=== PATIENT | male | born 1950 | race African-American/Black ===

== ENCOUNTER 2017-03-12 11:51 | Emergency (ER) | payer OTHER ==
[~2017-03-12] VITALS: Ht 172.7 cm; Wt 102.0 kg
[~2017-03-12 11:51] MED LIST: ALBU8I INH; CYCL-36 PO; DOCU1CAP39 PO; MULT-65 PO; PANT20 PO; PROT40TA PO; SERT25TA83 PO; SILD20TA PO; SYMB80AE INH; TERA10CA3 PO; ZOFR4TAB3 SL
[2017-03-12 12:00] VITALS: BP 176/81; PULSE 71; RESP 16; TEMP 98.4; O2SAT 100
[2017-03-12] MEDS ORDERED: SODIUM CHLOR 0.9% 1000 ML INJ 1,000 ML IV ONE (12:05)
[2017-03-12 12:10] VITALS: O2SAT 98
--- NOTE | 2017-03-12 12:22 | PD ---
HPI Chief Complaint: Neuro Symptoms/ Deficits Time Seen by Provider: 12:00 Travel History International Travel<30 days: No Contact w/Intl Traveler<30days: No Traveled to known affect area: No History of Present Illness HPI 66-year-old Afro-[place] male with history of prostate cancer status post radiation treatment presents the emergency department via EMS with 3 day history of acute facial numbness and weakness. Patient has had some decreased hearing and dizziness as well. The patient reports a mild fever and chills over this past weekend as well. This seems to have improved but he continues to have worsening facial droop on the right. Patient states no obvious weakness or numbness in the right arm or right leg. Patient was blaming his symptoms on recent change in his prostate medication medicine. He states a mild headache 1-5 out of 10 over the past 3 days. This is not worsening. Patient has had difficulty drinking due to the right side mouth weakness. He denies difficulty swallowing in the throat, or tongue. Speech is normal. Patient is having difficulty keeping his right eye closed. He has no eye pain. Patient called EMS as his symptoms seem to be worsening today compared to the last 2 days. He has no known drug allergies. PFSH Past Medical History Anemia: Yes Arthritis: Yes Asthma: Yes Anxiety: Yes Depression: Yes Cancer: Yes (PROSTATE CA ) Cardiac Catheterization: Yes Cardiovascular Problems: Yes Chest Pain: Yes Congestive Heart Failure: Yes COPD: Yes Diminished Hearing: No Endocrine: No Genitourinary: No Hepatitis: Yes (HEP C) Hiatal Hernia: Yes Hypertension: Yes Immune Disorder: No Musculoskeletal: Yes Neurologic: No Psychiatric: Yes Reproductive: No Respiratory: Yes Myocardial Infarction: Yes (2012) Social History Alcohol Use: No Tobacco Use: No Substance Use: No Allergies-Medications (Allergen,Severity, Reaction): Coded Allergies: No Known Allergies (Unverified Adverse Reaction, Unknown, 03/12/17) Reported Meds & Prescriptions Reported Meds & Active Scripts Active Valtrex (Valacyclovir HCl) 1,000 Mg Tab 1,000 Mg PO BID 5 Days Prednisone 20 Mg Tab 20 Mg PO BID 5 Days Protonix (Pantoprazole Sodium) 40 Mg Tab 40 Mg PO DAILY 30 Days Zofran ODT (Ondansetron HCl) 4 Mg Tab 4 Mg SL Q6H PRN FOR NAUSEA/VOMITING Reported Multi-Vitamin Daily (Multivitamins) Daily Tab 1 Tab PO DAILY Colace 100 Mg Cap (Docusate Sodium) 100 Mg Cap 100 Mg PO BID Sildenafil Citrate 20 Mg Tab 100 Mg PO WEEKLY Sertraline 25 mg (Sertraline HCl) 25 Mg Tab 25 Mg PO HSPRN Protonix (Pantoprazole Sodium) 20 Mg Tab 20 Mg PO DAILY Symbicort (Budesonide/Formoterol Fumarate) 80 Mcg/4.5 Mcg Aer 2 Puff INH BID * SHAKE WELL BEFORE USE * Terazosin Hcl (Terazosin HCl) 10 Mg Cap 10 Mg PO HS Flexeril (Cyclobenzaprine HCl) 10 Mg Tab 10 Mg PO DAILY PRN Ventolin Hfa (Albuterol Sulfate) 8 Gm Aero 2 Puff INH PRN * SHAKE WELL BEFORE USE * Review of Systems Except as stated in HPI: all other systems reviewed are Neg General / Constitutional: Positive: Fever (recent mild now improved.), Chills ( recent mild but now improved.) Eyes: Positive: Tearing (right eye), No: Diploplia, Blurred Vision, Photophobia , Drainage, Redness, Foreign Body Sensation, Pain, Blind Spots, Visual changes, Blindness HENT: Positive: Headaches (mild right-sided headache), Vertigo (mild occasional ), Other (intermittent decreased hearing in the right ear.), No: Lightheadedness , Sore Throat, Rhinitis, Rhinorrhea, Congestion, Nosebleed, Neck Stiffness, Neck Pain, Masses, Gingival Bleeding, Dental Difficulties, Ear Discharge, Earache Cardiovascular: No: Chest Pain or Discomfort, Palpitations, Irregular Rhythm, Tachycardia Respiratory: No: Cough, Shortness of Breath, Wheezing Gastrointestinal: No: Nausea, Vomiting, Diarrhea, Abdominal Pain Genitourinary: No: Dysuria Musculoskeletal: No: Myalgias, Arthralgias, Limited ROM, Weakness, Cramping, Edema, Pain Skin: No Rash Neurologic: Positive: Weakness (right facial droop), Dizziness (mild), Focal Abnormalities (numbness in the trigeminal nerve distribution.), Headache (mild headache on the right.), Paresthesia (only of the right face), No: Syncope, Coordination Problem, Tremor, Ataxia, Change in Mentation, Slurred Speech, Incontinence, Seizures, Sensory Disturbance Psychiatric: No: Depression Endocrine: No: Polydipsia Hematologic/Lymphatic: No: Easy Bruising Physical Exam Narrative GENERAL: Patient appears cheerful and alert and oriented 3. SKIN: Warm and dry. Color. Normal turgor. No rash. HEAD: Atraumatic. Normocephalic. EYES: Pupils equal and round. No scleral icterus. No injection or drainage. Ocular motions are full and equal bilaterally. There is no nystagmus. ENT: No nasal bleeding or discharge. Mucous membranes pink and moist. Pharynx is normal. Uvula is midline. Tongue is normal. TMs are clear bilaterally. NECK: Trachea midline. Supple and nontender. No bruits appreciated.. CARDIOVASCULAR: Regular rate and rhythm. No murmurs gallops or rubs. RESPIRATORY: No accessory muscle use. Clear to auscultation. Breath sounds equal bilaterally. GASTROINTESTINAL: Abdomen soft, non-tender, nondistended. Hepatic and splenic margins not palpable. MUSCULOSKELETAL: Extremities without clubbing, cyanosis, or edema. No obvious deformities. NEUROLOGICAL: Awake and alert. Patient has obvious right-sided facial bruit including the eyelid, and right cheek. Patient states decreased sensation in the right trigeminal nerve distribution. Motor grossly within normal limits. 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 Normal Five out of 5 muscle strength in the arms and legs. Normal speech. No slurred speech noted. Psych: Within normal limits. Data Data Last Documented VS Vital Signs Date Time Temp Pulse Resp B/P (MAP) Pulse Ox O2 Delivery O2 Flow Rate FiO2 03/12/17 12:10 98 Room Air 03/12/17 12:05 65 16 03/12/17 12:00 98.4 176/81 (112) Orders Orders Activity Bed Rest (03/12/17 ) Electrocardiogram (03/12/17 ) Prothrombin Time / Inr (Pt) (03/12/17 12:05) Act Partial Throm Time (Ptt) (03/12/17 12:05) Complete Blood Count With Diff (03/12/17 12:05) Fibrinogen (03/12/17 12:05) Creatine Kinase (Cpk) (03/12/17 12:05) Ua Includes Microscopic (03/12/17 12:05) Type And Screen (03/12/17 12:05) Ct Brain W/O Iv Contrast(Rout) (03/12/17 ) Chest, Single Ap (03/12/17 ) Ecg Monitoring (03/12/17 12:05) Iv Access Insert/Monitor (03/12/17 12:05) Oximetry (03/12/17 12:05) Oxygen Administration (03/12/17 12:05) Sodium Chlor 0.9% 1000 Ml Inj (Ns 1000 M (03/12/17 12:05) Westergren Sedimentation Rate (03/12/17 12:05) C-Reactive Protein (Crp) (03/12/17 12:05) Basic Metabolic Panel (Bmp) (03/12/17 13:33) Labs Laboratory Tests Test 03/12/17 12:22 03/12/17 12:53 White Blood Count 6.7 TH/MM3 Red Blood Count 3.49 MIL/MM3 Hemoglobin 11.7 GM/DL Hematocrit 34.6 % Mean Corpuscular Volume 99.4 FL Mean Corpuscular Hemoglobin 33.6 PG Mean Corpuscular Hemoglobin Concent 33.8 % Red Cell Distribution Width 15.7 % Platelet Count 348 TH/MM3 Mean Platelet Volume 7.3 FL Neutrophils (%) (Auto) 64.3 % Lymphocytes (%) (Auto) 25.0 % Monocytes (%) (Auto) 7.1 % Eosinophils (%) (Auto) 2.5 % Basophils (%) (Auto) 1.1 % Neutrophils # (Auto) 4.3 TH/MM3 Lymphocytes # (Auto) 1.7 TH/MM3 Monocytes # (Auto) 0.5 TH/MM3 Eosinophils # (Auto) 0.2 TH/MM3 Basophils # (Auto) 0.1 TH/MM3 CBC Comment DIFF FINAL Differential Comment Erythrocyte Sedimentation Rate 60 mm/hr Prothrombin Time 10.2 SEC Prothromb Time International Ratio 1.0 RATIO Activated Partial Thromboplast Time 25.4 SEC Fibrinogen 431 mg/dL Blood Urea Nitrogen 13 MG/DL Creatinine 1.25 MG/DL Random Glucose 134 MG/DL Calcium Level 9.5 MG/DL Sodium Level 140 MEQ/L Potassium Level 4.3 MEQ/L Chloride Level 106 MEQ/L Carbon Dioxide Level 27.0 MEQ/L Anion Gap 7 MEQ/L Estimat Glomerular Filtration Rate 70 ML/MIN Total Creatine Kinase 263 U/L C-Reactive Protein 0.96 MG/DL Urine Color YELLOW Urine Turbidity CLEAR Urine pH 5.5 Urine Specific [place] 1.022 Urine Protein NEG mg/dL Urine Glucose (UA) TRACE mg/dL Urine Ketones NEG mg/dL Urine Occult Blood NEG Urine Nitrite NEG Urine Bilirubin NEG Urine Urobilinogen LESS THAN 2.0 MG/DL Urine Leukocyte Esterase NEG Urine RBC 2 /hpf Urine WBC 1 /hpf Urine Squamous Epithelial Cells <1 /hpf Urine Hyaline Casts 1 /lpf Urine Mucus FEW /lpf MDM Medical Decision Making Medical Screen Exam Complete: Yes Emergency Medical Condition: Yes Medical Record Reviewed: Yes Differential Diagnosis Facial droop. Possible Mnire's disease. Possible Soto's palsy. Tumor. Possible stroke. Narrative Course Patient appears medically stable at time of exam. Labs ordered including CBC, CMP, ESR, CRP, fibrinogen, coagulation studies, urinalysis. Chest x-ray and CT of the brain without IV contrast is ordered. Chest x-ray is negative for acute process. CBC shows mild anemia with hemoglobin of 11.7. ESR is elevated at 60. Coagulation studies are normal with a fibrinogen of 431. Chemistries showed total creatinine kinase of 263. CRP is elevated at 0.96. Urinalysis is unremarkable. Head CT showed no acute findings. 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 Patient is discussed with Dr. Staples. Patient will be treated with prednisone 20 mg twice a day 5 days. Patient also given Valtrex 1000 mg twice a day 5 days. Patient is to use Lacri-Lube to the right eye at night, which should also be tape shut as well. Patient to follow up with milk driver in the next week as discussed. Patient can return to emergency Department with any worsening symptoms as needed. 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 Patient is discussed with Dr. Staples. Patient will be treated with prednisone 20 mg twice a day 5 days. Patient also given Valtrex 1000 mg twice a day 5 days. Patient is to use Lacri-Lube to the right eye at night, which should also be tape shut as well. Patient to follow up with milk driver in the next week as discussed. Patient can return to emergency Department with any worsening symptoms as needed. Med/Other Pt SpecificInfo: Prescription(s) given Scripts Valacyclovir (Valtrex) 1,000 Mg Tab 1000 MG PO BID for Mgmt Viral Infection for 5 Days, #1 TAB 0 Refills Prov: Leslie Staples MD 03/12/17 Prednisone (Prednisone) 20 Mg Tab 20 MG PO BID for 5 Days, #10 TAB 0 Refills Prov: Leslie Staples MD 03/12/17 Disposition: 01 DISCHARGE HOME Condition: Stable Afshin Aponte Mar 12, 2017 12:22
[2017-03-12 12:37] LABS: AUTOMATED NEUTROPHIL # 4.3 TH/MM3 (1.8-7.7); BASOPHIL # 0.1 TH/MM3 (0-0.2); BASOPHIL % 1.1 % (0.0-2.0); EOSINOPHIL # 0.2 TH/MM3 (0-0.4); EOSINOPHIL % 2.5 % (0.0-4.0); HEMATOCRIT 34.6 % (39.0-51.0); HEMO FLAGS DIFF FINAL; LYMPHOCYTE # 1.7 TH/MM3 (1.0-4.8); MEAN CELL VOLUME 99.4 FL (80.0-100.0); MEAN CORPUSCULAR HEMOGLOBIN 33.6 PG (27.0-34.0); MEAN CORPUSCULAR HGB CONC 33.8 % (32.0-36.0); MONO % 7.1 % (0.0-8.0); NEUT % 64.3 % (16.0-70.0); PLATELET COUNT 348 TH/MM3 (150-450); RED BLOOD COUNT 3.49 MIL/MM3 (4.50-5.90); RED CELL DISTRIBUTION WIDTH 15.7 % (11.6-17.2); WHITE BLOOD COUNT 6.7 TH/MM3 (4.0-11.0)
[2017-03-12 12:51] LABS: APTT (PATIENT) 25.4 SEC (24.3-30.1); PROTHROMBIN TIME - PATIENT 10.2 SEC (9.8-11.6)
--- NOTE | 2017-03-12 12:55 | RADRPT ---
EXAM DATE/TIME: 03/12/2017 12:28 [facility] COMPARISON: No previous studies available for comparison. INDICATIONS : Cough. MEDICAL HISTORY : Carcinoma, prostatic. SURGICAL HISTORY : None. ENCOUNTER: Initial ACUITY: 1 day PAIN SCORE: 0/10 LOCATION: Bilateral chest FINDINGS: A single view of the chest demonstrates the lungs to be symmetrically aerated without evidence of mas s, infiltrate or effusion. The cardiomediastinal contours are unremarkable. Osseous structures are intact. CONCLUSION: No acute disease. Mandeep Olivera MD on March 12, 2017 at 12:53 Board Certified Radiologist. This report was verified electronically.
[2017-03-12 13:15] LABS: BLOOD, URINE NEG (NEG); GLUCOSE,URINE TRACE mg/dL (NEG); HYALINE CAST, URINE 1 /lpf (RARE); KETONE, URINE NEG (NEG); MUCUS URINE FEW /lpf (OCC); NITRITE,URINE NEG (NEG); PH, URINE 5.5 (5.0-8.5); SQUAMOUS EPITHELIAL CELL URINE <1 /hpf (0-5); URINE COLOR YELLOW (YELLW/STRAW)
[2017-03-12 14:33] LABS: POTASSIUM 4.3 MEQ/L (3.5-5.1)
--- NOTE | 2017-03-12 15:36 | RADRPT ---
EXAM DATE/TIME: 03/12/2017 13:55 [facility] COMPARISON: No previous studies available for comparison. INDICATIONS : Right sided facial numbness droop. RADIATION DOSE: 56.35 CTDIvol (mGy) MEDICAL HISTORY : Cardiovascular disease. Chronic obstructive pulmonary disease. Hepatitis C. SURGICAL HISTORY : None. ENCOUNTER: Initial ACUITY: 1 day PAIN SCALE: 5/10 LOCATION: cranial TECHNIQUE: Multiple contiguous axial images were obtained of the head. Using automated exposure control and adj ustment of the mA and/or kV according to patient size, radiation dose was kept as low as reasonably a chievable to obtain optimal diagnostic quality images. DICOM format image data is available electro nically for review and comparison. FINDINGS: CEREBRUM: The ventricles are normal for age. No evidence of midline shift, mass lesion, hemorrhage or acute in farction. No extra-axial fluid collections are seen. POSTERIOR FOSSA: The cerebellum and brainstem are intact. The 4th ventricle is midline. The cerebellopontine angle i s unremarkable. EXTRACRANIAL: The visualized portion of the orbits is intact. SKULL: The calvaria is intact. No evidence of skull fracture. CONCLUSION: 1. No acute intracranial abnormality. Pnafilo Lynch MD on March 12, 2017 at 15:26 Board Certified Radiologist. This report was verified electronically.
[2017-03-12] MEDS ORDERED: PRED20 PO (16:10)
[2017-03-12] MEDS ORDERED: VALT1TAB PO (16:10)
--- NOTE | 2017-03-13 15:59 | EKG ---
Date Performed: 03/12/2017 Time Performed: 13:10:32 PTAGE: 66 years EKG: Sinus rhythm LEFT ANTERIOR FASCICULAR BLOCK NONSPECIFIC T-WAVE ABNORMALITY ABNORMAL ECG PREVIOUS TRACING : 12/13/2013 10.58 DOCTOR: Emmett Monson Interpretating Date/Time 03/13/2017 15:57:31
== END 2017-03-12 16:40 | disposition home or self-care (01) ==
LOC: NEPC 11:51
DX: G51.0 Bell's palsy (principal); R94.31 Abnormal electrocardiogram [ECG] [EKG]; R42 Dizziness and giddiness; R53.1 Weakness; D64.9 Anemia, unspecified; J44.9 Chronic obstructive pulmonary disease, unspecified; I11.0 Hypertensive heart disease with heart failure; B19.20 Unspecified viral hepatitis C without hepatic coma
CPT/HCPCS: 70450; 71010; 80048; 81001; 82550; 85025; 85384; 85610; 85652; 85730; 86140; 86850; 86900; 86901; 93005; 99285; J7030

== ENCOUNTER 2017-03-29 12:24 | Emergency (ER) | payer OTHER ==
[~2017-03-29] VITALS: Ht 172.7 cm; Wt 113.5 kg
[~2017-03-29 12:24] MED LIST changes: +PRED20 PO; +VALT1TAB PO
[2017-03-29 12:44] VITALS: BP 155/83; PULSE 73; RESP 16; TEMP 98.6; O2SAT 98
--- NOTE | 2017-03-29 13:24 | PD ---
HPI Chief Complaint: GI Complaint Time Seen by Provider: 13:11 Travel History International Travel<30 days: No Contact w/Intl Traveler<30days: No Traveled to known affect area: No History of Present Illness HPI The patient is a 66-year-old male who presents to the emergency department from the [facility] for bright rectal blood per rectum. The patient states he had a painful bowel movement 2 days ago, had a small amount of blood on the tissue paper and on the stool. He then had a normal bowel movement the next day, however, had another bowel movement today with a small metal blood on the tissue paper and in the toilet covering the stool. He denies any known history of anal fissures , hemorrhoids, or diverticulosis. The patient was seen at the [facility] earlier today who referred the patient to the emergency department. He denies any chest pain, shortness of breath with exertion, lightheadedness, or orthostatic changes. The patient does have a history of coronary artery disease and takes aspirin on a daily basis, but denies taking any other anticoagulants. He denies any acute abdominal pain, however, occasionally has mild left lower quadrant tenderness. Symptoms are mild without any alleviating or exacerbating factors. PFSH Past Medical History Anemia: Yes Arthritis: Yes Asthma: Yes Anxiety: Yes Depression: Yes Cancer: Yes (PROSTATE CA ) Cardiac Catheterization: Yes Cardiovascular Problems: Yes Chest Pain: Yes Congestive Heart Failure: Yes COPD: Yes Diminished Hearing: No Endocrine: No Genitourinary: No Hepatitis: Yes (HEP C) Hiatal Hernia: Yes Hypertension: Yes Immune Disorder: No Musculoskeletal: Yes Neurologic: No Psychiatric: Yes Reproductive: No Respiratory: Yes Myocardial Infarction: Yes (2012) Social History Alcohol Use: No Tobacco Use: No Substance Use: No Allergies-Medications (Allergen,Severity, Reaction): Coded Allergies: No Known Allergies (Unverified Adverse Reaction, Unknown, 03/12/17) Reported Meds & Prescriptions Reported Meds & Active Scripts Active Reported Effexor (Venlafaxine HCl) 100 Mg Tab 150 Mg PO Q12H Valacyclovir (Valacyclovir HCl) 1,000 Mg Tab 1,000 Mg PO DAILY Tamsulosin (Tamsulosin HCl) 0.4 Mg Cap 0.4 Mg PO HS Sildenafil 20 Mg Tab 20 Mg PO TID Prednisone 20 Mg Tab 20 Mg PO DAILY Pravastatin 40 Mg Tab 40 Mg PO DAILY Metoprolol Tartrate 25 Mg Tab 25 Mg PO BID Magnesium Oxide 400 Mg Tab 400 Mg PO DAILY Refresh Plus Unit-Dose 0.5% Opth (Carboxymethylcellulose Sodium 0.5% Opth) 0.5% Drops 1 Drop EACH EYE QID Aspirin 81 Mg Chew 81 Mg CHEW DAILY Review of Systems Except as stated in HPI: all other systems reviewed are Neg General / Constitutional: No: Fever HENT: No: Lightheadedness Cardiovascular: No: Chest Pain or Discomfort, Dyspnea on exertion Respiratory: No: Shortness of Breath Gastrointestinal: Positive: Abdominal Pain (intermittent left lower quadrant abdominal pain), Hematochezia, No: Nausea, Vomiting Genitourinary: Positive: Other (history of prostate cancer with radiation and chemotherapy), No: Hematuria Musculoskeletal: No: Weakness Neurologic: No: Dizziness Physical Exam Narrative GENERAL: Awake, alert, pleasant 66-year-old male who appears his stated age and is in no acute respiratory distress. SKIN: Focused skin assessment warm/dry. HEAD: Atraumatic. Normocephalic. EYES: Pupils equal and round. No scleral icterus. No injection or drainage. ENT: No nasal bleeding or discharge. Mucous membranes pink and moist. NECK: Trachea midline. No JVD. CARDIOVASCULAR: Regular rate and rhythm. No murmur appreciated. Heart rate in the 70s. RESPIRATORY: No accessory muscle use. Clear to auscultation. Breath sounds equal bilaterally. GASTROINTESTINAL: Abdomen soft, minimal left lower quadrant tenderness. No guarding or rigidity. Rectal: No obvious anal fissure or external hemorrhoids. No gross blood. Guaiac negative. MUSCULOSKELETAL: No obvious deformities. No clubbing. No cyanosis. No edema. NEUROLOGICAL: Awake and alert. No obvious cranial nerve deficits. Motor grossly within normal limits. Normal speech. PSYCHIATRIC: Appropriate mood and affect; insight and judgment normal. Data Data Last Documented VS Vital Signs Date Time Temp Pulse Resp B/P (MAP) Pulse Ox O2 Delivery O2 Flow Rate FiO2 03/29/17 13:37 77 113/58 (76) 79 112/60 (77) 87 111/71 (84) 03/29/17 12:44 98.6 16 98 Room Air Orders Orders Complete Blood Count With Diff (03/29/17 12:49) Comprehensive Metabolic Panel (03/29/17 12:49) Lipase (03/29/17 12:49) Prothrombin Time / Inr (Pt) (03/29/17 12:49) Act Partial Throm Time (Ptt) (03/29/17 12:49) Labs Laboratory Tests Test 03/29/17 13:30 White Blood Count 5.8 TH/MM3 Red Blood Count 3.73 MIL/MM3 Hemoglobin 13.2 GM/DL Hematocrit 37.0 % Mean Corpuscular Volume 99.1 FL Mean Corpuscular Hemoglobin 35.3 PG Mean Corpuscular Hemoglobin Concent 35.7 % Red Cell Distribution Width 15.8 % Platelet Count 269 TH/MM3 Mean Platelet Volume 8.0 FL Neutrophils (%) (Auto) 60.0 % Lymphocytes (%) (Auto) 30.0 % Monocytes (%) (Auto) 7.5 % Eosinophils (%) (Auto) 1.5 % Basophils (%) (Auto) 1.0 % Neutrophils # (Auto) 3.5 TH/MM3 Lymphocytes # (Auto) 1.8 TH/MM3 Monocytes # (Auto) 0.4 TH/MM3 Eosinophils # (Auto) 0.1 TH/MM3 Basophils # (Auto) 0.1 TH/MM3 CBC Comment DIFF FINAL Differential Comment Prothrombin Time 9.8 SEC Prothromb Time International Ratio 1.0 RATIO Activated Partial Thromboplast Time 22.6 SEC Blood Urea Nitrogen 20 MG/DL Creatinine 1.61 MG/DL Random Glucose 141 MG/DL Total Protein 8.5 GM/DL Albumin 4.1 GM/DL Calcium Level 9.8 MG/DL Alkaline Phosphatase 99 U/L Aspartate Amino Transf (AST/SGOT) 27 U/L Alanine Aminotransferase (ALT/SGPT) 39 U/L Total Bilirubin 0.7 MG/DL Sodium Level 136 MEQ/L Potassium Level 4.3 MEQ/L Chloride Level 102 MEQ/L Carbon Dioxide Level 26.6 MEQ/L Anion Gap 7 MEQ/L Estimat Glomerular Filtration Rate 53 ML/MIN Lipase 145 U/L MDM Medical Decision Making Medical Screen Exam Complete: Yes Emergency Medical Condition: Yes Medical Record Reviewed: Yes Interpretation(s) Laboratory Tests Test 03/29/17 13:30 White Blood Count 5.8 TH/MM3 Red Blood Count 3.73 MIL/MM3 Hemoglobin 13.2 GM/DL Hematocrit 37.0 % Mean Corpuscular Volume 99.1 FL Mean Corpuscular Hemoglobin 35.3 PG Mean Corpuscular Hemoglobin Concent 35.7 % Red Cell Distribution Width 15.8 % Platelet Count 269 TH/MM3 Mean Platelet Volume 8.0 FL Neutrophils (%) (Auto) 60.0 % Lymphocytes (%) (Auto) 30.0 % Monocytes (%) (Auto) 7.5 % Eosinophils (%) (Auto) 1.5 % Basophils (%) (Auto) 1.0 % Neutrophils # (Auto) 3.5 TH/MM3 Lymphocytes # (Auto) 1.8 TH/MM3 Monocytes # (Auto) 0.4 TH/MM3 Eosinophils # (Auto) 0.1 TH/MM3 Basophils # (Auto) 0.1 TH/MM3 CBC Comment DIFF FINAL Differential Comment Prothrombin Time 9.8 SEC Prothromb Time International Ratio 1.0 RATIO Activated Partial Thromboplast Time 22.6 SEC Blood Urea Nitrogen 20 MG/DL Creatinine 1.61 MG/DL Random Glucose 141 MG/DL Total Protein 8.5 GM/DL Albumin 4.1 GM/DL Calcium Level 9.8 MG/DL Alkaline Phosphatase 99 U/L Aspartate Amino Transf (AST/SGOT) 27 U/L Alanine Aminotransferase (ALT/SGPT) 39 U/L Total Bilirubin 0.7 MG/DL Sodium Level 136 MEQ/L Potassium Level 4.3 MEQ/L Chloride Level 102 MEQ/L Carbon Dioxide Level 26.6 MEQ/L Anion Gap 7 MEQ/L Estimat Glomerular Filtration Rate 53 ML/MIN Lipase 145 U/L Differential Diagnosis Differential diagnosis includes anal fissure, internal hemorrhoid, diverticulosis, AV malformation, angiodysplasia, upper GI bleed, aspirin side effect. Narrative Course IV was established, labs are drawn and sent, and the patient was placed on cardiac telemetry monitoring and continuous pulse oximetry monitoring. CBC, CMP , and coags were sent to lab. Orthostatic vital signs were obtained. The patient's hemoglobin was 13.2, within normal limits. Creatinine is mildly elevated at 1.61, is baseline appears to be between 0.95 and 2 based on previous labs. Orthostatic vital signs are unremarkable. BUN was slightly elevated at 20, patient has hematochezia, most likely secondary to internal hemorrhoids and/or diverticulosis. The patient is otherwise asymptomatic. He is stable for outpatient follow-up, is advised to follow-up with the [facility] for referral to gastroenterology. The patient states he had a colonoscopy done one year ago prior to radiation therapy for prostate cancer which was unremarkable per his report. Orthostatic vital signs are unremarkable. The patient will be provided a copy of his labs at discharge. [facility] Point of Care Internal Pos. & Neg. Controls: Passed Fecal Specimen Occult Blood: Negative Diagnosis Primary Impression: Hematochezia Patient Instructions: General Instructions Additional Instructions: Please provide the patient copy of his labs at discharge. Follow-up with the [facility], he may need referral to gastroenterology if symptoms persist. Return for orthostatic changes, near syncope, lightheadedness, dizziness, or progressive increase in bleeding. Med/Other Pt SpecificInfo: No Change to Meds Disposition: 01 DISCHARGE HOME Condition: Stable Wilian Avila MD Mar 29, 2017 13:24
[2017-03-29 13:37] VITALS: BP_SYST 111; BP_SYST 112; BP_SYST 113; BP_DIAS 58; BP_DIAS 60; BP_DIAS 71
[2017-03-29 13:42] LABS: AUTOMATED NEUTROPHIL # 3.5 TH/MM3 (1.8-7.7); BASOPHIL # 0.1 TH/MM3 (0-0.2); EOSINOPHIL # 0.1 TH/MM3 (0-0.4); EOSINOPHIL % 1.5 % (0.0-4.0); HEMOGLOBIN 13.2 GM/DL (13.0-17.0); LYMPHOCYTE # 1.8 TH/MM3 (1.0-4.8); MEAN CELL VOLUME 99.1 FL (80.0-100.0); MEAN CORPUSCULAR HEMOGLOBIN 35.3 PG (27.0-34.0); MEAN CORPUSCULAR HGB CONC 35.7 % (32.0-36.0); MONO % 7.5 % (0.0-8.0); MONOCYTE # 0.4 TH/MM3 (0-0.9); PLATELET COUNT 269 TH/MM3 (150-450); RED BLOOD COUNT 3.73 MIL/MM3 (4.50-5.90); RED CELL DISTRIBUTION WIDTH 15.8 % (11.6-17.2); WHITE BLOOD COUNT 5.8 TH/MM3 (4.0-11.0)
[2017-03-29] MEDS ORDERED: ASPI-516 CHEW (13:43)
[2017-03-29] MEDS ORDERED: TAMS0.4C4 PO (13:43)
[2017-03-29] MEDS ORDERED: MAGN400T2 PO (13:43)
[2017-03-29] MEDS ORDERED: REFR0.5D9 EACH EYE (13:43)
[2017-03-29] MEDS ORDERED: VALA1TAB PO (13:43)
[2017-03-29] MEDS ORDERED: SILD20TA11 PO (13:43)
[2017-03-29] MEDS ORDERED: PRAV40TA2 PO (13:43)
[2017-03-29] MEDS ORDERED: METO25TA3 PO (13:43)
[2017-03-29] MEDS ORDERED: PRED20 PO (13:43)
[2017-03-29] MEDS ORDERED: VENL100T PO (13:43)
[2017-03-29 13:57] LABS: PROTHROMBIN TIME - PATIENT 9.8 SEC (9.8-11.6)
[2017-03-29 14:08] LABS: ALKALINE PHOSPHATASE 99 U/L (45-117); TOTAL BILIRUBIN ADULT 0.7 MG/DL (0.2-1.0); TOTAL PROTEIN 8.5 GM/DL (6.4-8.2)
[2017-03-29 14:11] LABS: ALBUMIN 4.1 GM/DL (3.4-5.0); ALT (GPT) 39 U/L (12-78); AST (GOT) 27 U/L (15-37); BICARBONATE 26.6 MEQ/L (21.0-32.0); BLOOD UREA NITROGEN 20 MG/DL (7-18); CALCIUM 9.8 MG/DL (8.5-10.1); CHLORIDE 102 MEQ/L (98-107); CREATININE 1.61 MG/DL (0.60-1.30); GLOMERULAR FILTRATION RATE 53 ML/MIN (>89); GLUCOSE,RANDOM 141 MG/DL (74-106); LIPASE 145 U/L (73-393); SODIUM (NA) 136 MEQ/L (136-145)
== END 2017-03-29 15:12 | disposition home or self-care (01) ==
LOC: NEPD 12:24
DX: K92.1 Melena (principal); D64.9 Anemia, unspecified; J44.9 Chronic obstructive pulmonary disease, unspecified; I11.0 Hypertensive heart disease with heart failure; B19.20 Unspecified viral hepatitis C without hepatic coma
CPT/HCPCS: 80053; 83690; 85025; 85610; 85730; 99283